=== PATIENT | female | born 1965 | race African-American/Black ===

== ENCOUNTER 2018-04-29 10:59 | Inpatient (IN) | payer OTHER ==
[~2018-04-29] VITALS: Ht 162.6 cm; Wt 75.3 kg
[2018-04-29 11:00] VITALS: BP 137/93
[2018-04-29] MEDS ORDERED: LEXAPRO 10 MG T10 M1 PO (11:12)
[2018-04-29] MEDS ORDERED: GLUCOPHAGE XR500 MG PO (11:13)
[2018-04-29] MEDS ORDERED: AMLODIPINE BESY10 MG PO (11:13)
[2018-04-29] MEDS ORDERED: JANUVIA100 MG PO (11:13)
[2018-04-29] MEDS ORDERED: NEURONTIN 300300 M1 PO (11:14)
[2018-04-29 11:43] LABS: ABSOLUTE BASOPHILS 0.1 thou/uL (0.0-0.2); ABSOLUTE EOSINOPHILS 0.1 thou/uL (0.0-0.7); ABSOLUTE LYMPHOCYTES 1.4 thou/uL (0.8-5.3); ABSOLUTE MONOCYTES 0.5 thou/uL (0.0-1.2); ABSOLUTE NEUTROPHILS 7.6 thou/uL (1.6-8.1); BASOPHILS 0.6 %; EOSINOPHILS 0.9 %; HEMOGLOBIN 15.3 gm/dL (12.0-15.0); LYMPHOCYTES 14.6 %; MCH 32.6 pg (26.0-34.0); MCHC 33.2 g/dL (28.0-37.0); MCV 98.3 fL (80.0-100.0); MPV 11.3 fl. (7.2-11.1); NUCLEATED RBCS 0 /100WBC; PLATELET COUNT* 269 thou/uL (150-400); POLYS 78.9 %; RBC 4.67 mil/uL (4.20-5.00); RDW-CV 12.8 % (10.5-14.5); WBC 9.7 thou/uL (4.0-11.0)
[2018-04-29 11:59] LABS: CALCIUM 9.2 mg/dL (8.5-10.1); CREATININE 1.2 mg/dL (0.6-1.3); POTASSIUM 4.7 mmol/L (3.5-5.1)
[2018-04-29 12:00] LABS: ALBUMIN 3.4 g/dL (3.4-5.0); TOTAL BILIRUBIN 0.3 mg/dL (<0.1-1.0); TOTAL PROTEIN 7.3 g/dL (6.4-8.2)
[2018-04-29 12:24] LABS: URINE BILIRUBIN NEGATIVE (Negative); URINE BLOOD 1+ (Negative); URINE CLARITY CLEAR; URINE COLOR YELLOW; URINE GLUCOSE-RANDOM 3+ (Negative); URINE KETONES TRACE (Negative); URINE LEUKOCYTES-REFLEX TRACE (Negative); URINE NITRITE-REFLEX NEGATIVE (Negative); URINE PROTEIN NEGATIVE (Negative); URINE SPECIFIC GRAVITY <= 1.005 (1.005-1.030); URINE UROBILINOGEN 0.2 E.U./dl (0.2-1.0)
[2018-04-29 12:37] LABS: BACTERIA-REFLEX 1-9 Few /HPF (None Seen); CASTS None Seen /LPF (None Seen); CRYSTALS None Seen /LPF (None Seen); SQUAMOUS 0-3 Few /LPF (0-3); URINE RBC 3-10 Few /HPF (0-2); URINE WBC-REFLEX 6-15 Few /HPF (0-5); YEAST-REFLEX Present (None Seen)
[2018-04-29 12:47] LABS: BE -2.1 mmol/L (-2 to +3); HCO3 21.8 mmol/L (22.0-26.0); PCO2 35.4 mmHg (35.0-45.0); PO2 81.2 mmHg (75.0-100.0); pH 7.408 (7.340-7.450)
[2018-04-29 14:04] VITALS: BP 130/77
[2018-04-29 14:15] VITALS: BP 128/72
[2018-04-29 14:55] VITALS: BP 128/72
--- NOTE | 2018-04-29 15:02 | NUR ---
RECEIVED REPORT FROM ER NURSE, KANG. ASSESSMENT CHARTED. AFEBRILE. PT DENIES PAIN. VITAL SIGNS STABLE. WILL CONTINUE TO MONITOR.
--- NOTE | 2018-04-29 17:59 | NUR ---
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
--- NOTE | 2018-04-29 18:12 | EKG ---
[place] [address] ELECTROCARDIOGRAM REPORT Name: MARK IZQUIERDOSOLO Alecia Room: [address] ADM IN .R.#: [id number] Admission: 04/29/18 Attend Phys: Maxine Lorenzana Discharge: Date of : 65 Report #: [id number] THIS REPORT FOR: //name// [facility] ED Test Date: 2018-04-29 Test Time: 11:27:22 Pat Name: GARY IZQUIERDO Department: Room: [facility] Gender: F Pairing Machine Operator: Kristopher ARANDA : 1965 Requested By: Tristan Quintero Order Number: [id number] MD: Bryn Mahmood Measurements Intervals [place] Rate: 85 P: 50 DE: 126 QRS: 24 QRSD: 84 T: 34 QT: 375 QTc: 446 Interpretive Statements Sinus rhythm with short pr interval Borderline ST elevation, anterior leads No previous ECG available for comparison Electronically Signed On 04-29-2018 18:12:14 CDT by Bryn Mahmood [email or web address] <ELECTRONICALLY SIGNED> By: Bryn Mahmood MD, [facility] 04/29/18 1812 1127 112 Bryn Mahmood MD, [facility] /EPI
[2018-04-29 20:00] VITALS: BP 131/80
--- NOTE | 2018-04-29 23:33 | NUR ---
ASSUMED PT CARE REPORT RECEIVED FROM NURSE.PT IS ALERT AWAKE ORIENTED X 4 SINUS RYTHM ON THE CHOIR ACCOMPANIST. ON RA. BLOOD SUGAR >510 PT ASYMPTOMATIC. LANTUS GIVEN SCHEDULED.. DR MICHAEL MANRIQUE. RECEIVED ORDER TO GIVE REGULAR INSULIN IVPUSH, TO RECHECK AT 0000 AND 0300. AND TO HOLD THE LISPRO. WILL MONITOR BLOOD SUGAR THOUGHTOUT NIGHT.
[2018-04-29 23:58] VITALS: BP 115/82
--- NOTE | 2018-04-30 01:01 | NUR ---
ACCUCHECK AT 0000 IS 286. MADE AWARE. NO ORDER RECEIVED
[2018-04-30 05:01] VITALS: BP 121/80
--- NOTE | 2018-04-30 06:23 | NUR ---
3 AM ACCUCHECK 345. 10 UNITS OF REGULAR IVPUSH GIVEN ORDERED BY DR RODRIGUEZ.
[2018-04-30 07:44] VITALS: BP 127/70
[2018-04-30 07:55] LABS: HEMATOCRIT 41.2 % (37.0-47.0); HEMOGLOBIN 13.9 gm/dL (12.0-15.0); MCH 32.6 pg (26.0-34.0); MCHC 33.7 g/dL (28.0-37.0); MCV 96.6 fL (80.0-100.0); MPV 10.8 fl. (7.2-11.1); RBC 4.27 mil/uL (4.20-5.00); RDW-CV 12.5 % (10.5-14.5); WBC 8.2 thou/uL (4.0-11.0)
[2018-04-30 08:08] LABS: ALBUMIN 2.9 g/dL (3.4-5.0); CALCIUM 8.6 mg/dL (8.5-10.1); CREATININE 0.8 mg/dL (0.6-1.3); TOTAL BILIRUBIN 0.4 mg/dL (<0.1-1.0); TOTAL PROTEIN 6.8 g/dL (6.4-8.2)
[2018-04-30 08:09] LABS: POTASSIUM 3.7 mmol/L (3.5-5.1)
[2018-04-30 12:00] VITALS: BP 137/85
[2018-04-30 16:00] VITALS: BP 134/81
--- NOTE | 2018-04-30 18:13 | NUR ---
ASSESSMENT COMPLETED REFER TO COMPUTER CHARTING. GEODESIST TRACKING SR. PATIENT REPORTING NO PAIN, NAUSEA OR SHORTNESS OF BREATH. BED IN LOW AND LOCKED POSITION. CALL LIGHT WITHIN REACH. IV SALINE LOCKED. ON ROOM AIR. PATIENT UP SELF IN ROOM. WILL CONTINUE TO MONITOR THIS SHIFT.
[2018-04-30 20:00] VITALS: BP 128/88
[2018-05-01] VITALS: BP 116/78
[2018-05-01 04:00] VITALS: BP 98/67
--- NOTE | 2018-05-01 04:07 | NUR ---
PT ALERT ORIENTED. UP AD MADAN IN ROOM. PT HAD LARGE BM. DENIES PAIN. TELEMETRY SHOWS SR. HS BLOOD GLUCOSE 205. WILL CONTINUE TO MONITOR.
[2018-05-01 08:00] VITALS: BP 132/71
[2018-05-01] MEDS ORDERED: GLUCOTROL5 MG PO (09:59)
[2018-05-01 10:04] VITALS: BP 132/71
== END 2018-05-01 10:36 | disposition home or self-care (01) | DRG 638 ==
LOC: M.ERS 10:59 → M.TBA-ER 13:13 → M.2W 14:18
PROVIDERS: Emergency Medicine; ADMIT Internal Medicine
DX: E11.10 Type 2 diabetes mellitus with ketoacidosis without coma (principal); E87.1 Hypo-osmolality and hyponatremia; F17.210 Nicotine dependence, cigarettes, uncomplicated; E88.89 Other specified metabolic disorders; E86.0 Dehydration; I10 Essential (primary) hypertension; Z28.21 Immunization not carried out because of patient refusal; Z79.899 Other long term (current) drug therapy